=== PATIENT | female | born 2000 | race Caucasian/White ===

== ENCOUNTER 2021-06-16 15:01 | Emergency (ER) | payer OTHER ==
[~2021-06-16] VITALS: Ht 160 cm; Wt 70.3 kg
[2021-06-16 15:27] VITALS: BP 142/91
[2021-06-16 16:49] LABS: BASOPHILS # (AUTO) 0.1 10^3/uL (0.0-0.1); BASOPHILS % (AUTO) 1 % (0-10); EOSINOPHILS # (AUTO) 0.1 10^3/uL (0.0-0.3); EOSINOPHILS % (AUTO) 0 % (0-10); HEMATOCRIT 40 % (35-52); HEMOGLOBIN 13.2 g/dL (11.5-16.0); LYMPHOCYTES # (AUTO) 2.9 10^3/uL (1.0-4.0); LYMPHOCYTES % (AUTO) 17 % (12-44); MEAN CORPUSCULAR HEMOGLOBIN 30 pg (25-34); MEAN CORPUSCULAR HGB CONC 33 g/dL (32-36); MEAN CORPUSCULAR VOLUME 90 fL (80-99); MEAN PLATELET VOLUME 10.3 fL (9.0-12.2); MONOCYTES # (AUTO) 0.6 10^3/uL (0.0-1.0); MONOCYTES % (AUTO) 3 % (0-12); NEUTROPHILS # (AUTO) 13.4 10^3/uL (1.8-7.8); NEUTROPHILS % (AUTO) 78 % (42-75); PLATELET COUNT 449 10^3/uL (130-400); WHITE BLOOD COUNT 17.1 10^3/uL (4.3-11.0)
[2021-06-16 16:49] LABS: BILIRUBIN,URINE NEGATIVE (NEGATIVE); CLARITY,URINE CLEAR; COLOR,URINE YELLOW; GLUCOSE, URINE (UA) NEGATIVE (NEGATIVE); KETONES,URINE NEGATIVE (NEGATIVE); LEUKOCYTE ESTERASE ,URINE NEGATIVE (NEGATIVE); NITRITE,URINE NEGATIVE (NEGATIVE); PH,URINE 7.5 (5-9); PROTEIN,URINE NEGATIVE (NEGATIVE)
--- NOTE | 2021-06-16 16:58 | ED General ---
General Chief Complaint: Dizziness/Syncope Stated Complaint: GOT NEXPLANON IMPLANT/DIZZY/NAUSEA Nursing Triage Note: PT AMB TO TRIAGE WITH COMPLAINT OF CHEST TIGHTNESS, DIZZINESS, SOA, AND NAUSEA. STATES HAS NEXPLANON PLACED ON SATURDAY BY TALITA TALAMANTES. IS CONCERNED IMPLANT IS CAUSING SYMPTOMS. Source of Information: Patient Exam Limitations: No Limitations History of Present Illness Date Seen by Provider: Jun 16, 2021 Time Seen by Provider: 16:56 Initial Comments To ER by private vehicle with reports of burning in her left arm transiently which is gone now. She also had transient dizziness, nausea, lightheadedness. [place], she had not eaten breakfast. She went home and ate something, found her heart rate to be low in the 40s, decided to come into the emergency room. She had a Nexplanon implanted in the left upper arm 2 days ago. At this time she feels back to normal. 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 Timing/Duration: 4-6 Hours Severity: Moderate Associated Systoms: Nausea/Vomiting Allergies and Home Medications Allergies Coded Allergies: Penicillins (Verified Allergy, Unknown, 06/16/21) amoxicillin (Verified Allergy, Unknown, 06/16/21) Patient Home Medication List Home Medication List Reviewed: Yes Review of Systems Review of Systems Constitutional: see HPI, chills, dizziness EENTM: see HPI Respiratory: no symptoms reported Cardiovascular: no symptoms reported Gastrointestinal: nausea Genitourinary: no symptoms reported Musculoskeletal: no symptoms reported Skin: no symptoms reported Psychiatric/Neurological: No Symptoms Reported Hematologic/Lymphatic: No Symptoms Reported Past [id number] Hx Patient Social History Tobacco Use?: No Use of E-Cig and/or Vaping dev: No Substance use?: No Alcohol Use?: No Pt feels they are or have been: No Physical Exam Vital Signs Vital Signs - First Documented 06/16/21 15:27 Pulse 110 Resp 22 B/P (MAP) 142/91 (108) Pulse Ox 100 O2 Delivery Room Air Capillary Refill : Less Than 3 Seconds Height, Weight, BMI Height: '" Weight: lbs. oz. kg; 27.00 BMI Method: General Appearance: No Apparent Distress, WD/WN Eyes: Bilateral Eye Normal Inspection, Bilateral Eye PERRL, Bilateral Eye EOMI HEENT: PERRL/EOMI, TMs Normal Neck: Full Range of Motion, Normal Inspection Respiratory: Lungs Clear, Normal Breath Sounds, No Accessory Muscle Use, No Respiratory Distress Cardiovascular: Regular Rate, Rhythm, Normal Peripheral Pulses Gastrointestinal: Normal Bowel Sounds, Non Tender, Soft Extremity: Normal Capillary Refill, Normal Inspection, Other (Upper extremity Nexplanon insertion site is clean and dry without ecchymosis or discharge from the puncture site or erythema.) Neurologic/Psychiatric: Alert, Oriented x3 Skin: Normal Color, Warm/Dry Progress/Results/Core Measures Suspected Sepsis SIRS Temperature: Pulse: 110 Respiratory Rate: 22 Laboratory Tests 06/16/21 16:30: White Blood Count 17.1H Blood Pressure 142 /91 Mean: 108 Laboratory Tests 06/16/21 16:30: Creatinine 0.87, Platelet Count 449H, Total Bilirubin 0.8 Results/Orders Lab Results Laboratory Tests Test 06/16/21 16:25 06/16/21 16:30 06/16/21 16:33 Range/Units Urine Color YELLOW Urine Clarity CLEAR Urine pH 7.5 5-9 Urine Specific [place] 1.020 1.016-1.022 Urine Protein NEGATIVE NEGATIVE Urine Glucose (UA) NEGATIVE NEGATIVE Urine Ketones NEGATIVE NEGATIVE Urine Nitrite NEGATIVE NEGATIVE Urine Bilirubin NEGATIVE NEGATIVE Urine Urobilinogen 0.2 < = 1.0 MG/DL Urine Leukocyte Esterase NEGATIVE NEGATIVE Urine RBC (Auto) NEGATIVE NEGATIVE Urine RBC NONE /HPF Urine WBC NONE /HPF Urine Crystals NONE /LPF Urine Bacteria NEGATIVE /HPF Urine Casts NONE /LPF Urine Mucus NEGATIVE /LPF Urine Culture Indicated NO White Blood Count 17.1 H 4.3-11.0 10^3/uL Red Blood Count 4.40 3.80-5.11 10^6/uL Hemoglobin 13.2 11.5-16.0 g/dL Hematocrit 40 35-52 % Mean Corpuscular Volume 90 80-99 fL Mean Corpuscular Hemoglobin 30 25-34 pg Mean Corpuscular Hemoglobin Concent 33 32-36 g/dL Red Cell Distribution Width 12.5 10.0-14.5 % Platelet Count 449 H 130-400 10^3/uL Mean Platelet Volume 10.3 9.0-12.2 fL Immature Granulocyte % (Auto) 0 % Neutrophils (%) (Auto) 78 H 42-75 % Lymphocytes (%) (Auto) 17 12-44 % Monocytes (%) (Auto) 3 0-12 % Eosinophils (%) (Auto) 0 0-10 % Basophils (%) (Auto) 1 0-10 % Neutrophils # (Auto) 13.4 H 1.8-7.8 10^3/uL Lymphocytes # (Auto) 2.9 1.0-4.0 10^3/uL Monocytes # (Auto) 0.6 0.0-1.0 10^3/uL Eosinophils # (Auto) 0.1 0.0-0.3 10^3/uL Basophils # (Auto) 0.1 0.0-0.1 10^3/uL Immature Granulocyte # (Auto) 0.1 0.0-0.1 10^3/uL Neutrophils % (Manual) 71 % Lymphocytes % (Manual) 25 % Monocytes % (Manual) 2 % Eosinophils % (Manual) 1 % Basophils % (Manual) 1 % Blood Morphology Comment NORMAL D-Dimer 0.31 0.00-0.49 UG/ML Sodium Level 139 135-145 MMOL/L Potassium Level 3.4 L 3.6-5.0 MMOL/L Chloride Level 108 H 98-107 MMOL/L Carbon Dioxide Level 20 L 21-32 MMOL/L Anion Gap 11 5-14 MMOL/L Blood Urea Nitrogen 9 7-18 MG/DL Creatinine 0.87 0.60-1.30 MG/DL Estimat Glomerular Filtration Rate 96 BUN/Creatinine Ratio 10 Glucose Level 81 70-105 MG/DL Calcium Level 9.5 8.5-10.1 MG/DL Corrected Calcium 8.5-10.1 MG/DL Total Bilirubin 0.8 0.1-1.0 MG/DL Aspartate Amino Transf (AST/SGOT) 18 5-34 U/L Alanine Aminotransferase (ALT/SGPT) 21 0-55 U/L Alkaline Phosphatase 61 40-136 U/L C-Reactive Protein High Sensitivity 0.08 0.00-0.50 MG/DL Total Protein 7.7 6.4-8.2 GM/DL Albumin 4.7 H 3.2-4.5 GM/DL Procalcitonin 0.01 <0.10 NG/ML Glucometer 76 70-110 MG/DL My Orders Orders - JANIA SANABRIA APRN Accucheck Stat ONCE (06/16/21 16:39) Urine Bedside (06/16/21 16:41) Cbc With Automated Diff (06/16/21 16:41) Comprehensive Metabolic Panel (06/16/21 16:41) Ua Culture If Indicated (06/16/21 16:41) Ed Iv/Invasive Line Start (06/16/21 16:41) Fibrin Degradation Products (06/16/21 16:47) Manual Differential (06/16/21 16:30) Procalcitonin (Pct) (06/16/21 17:09) Hs C Reactive Protein (06/16/21 17:09) Vital Signs/I&O 06/16/21 15:27 Pulse 110 Resp 22 B/P (MAP) 142/91 (108) Pulse Ox 100 O2 Delivery Room Air Capillary Refill : Less Than 3 Seconds Blood Pressure Mean: 108 Point of Care Testing Finger Stick Blood Glucose: 76 Departure Communication (Admissions) 181-patient reports that she is still feeling back to normal. She is worried about what her symptoms are presented. Discussed with her the slight leukocytosis and the need for follow-up though the cause of this is not clear and is also not alarming based on her other labs. She agrees to return for any worsening or recurrent symptoms. She will follow-up with [facility] next week. Impression Primary Impression: Nausea Additional Impression: Dizziness Disposition: HOME, SELF-CARE Condition: Stable Departure-Patient Inst. Decision time for Depature: 18:04 Referrals: NO,LOCAL PHYSICIAN (PCP) Primary Care Physician TALITA TALAMANTES (Family) Primary Care Physician Patient Instructions: Dizziness, Adult ED Add. Discharge Instructions: 1. The cause of your symptoms earlier today is not entirely clear. This could have been related to not eating breakfast, it could have been related to the side effect of the hormones from the Nexplanon. Follow-up with your primary care provider within 1 to 2 weeks. Your white blood cells were slightly elevated and warrants a recheck but is a nonspecific finding and by itself is not terribly alarming.. This can represent infectious process or stress response to any sort of illness. Return to ER for any fevers, or any worsening symptoms. Copy Copies To 1: PAULA LEAL MD, PETER J APRN Jun 16, 2021 16:57
[2021-06-16 17:07] LABS: ALBUMIN 4.7 GM/DL (3.2-4.5); CHLORIDE 108 MMOL/L (98-107); POTASSIUM 3.4 MMOL/L (3.6-5.0); SODIUM 139 MMOL/L (135-145)
[2021-06-16 17:07] LABS: BACTERIA,URINE NEGATIVE /HPF
[2021-06-16 17:08] LABS: CALCIUM 9.5 MG/DL (8.5-10.1)
[2021-06-16 17:09] LABS: GLUCOSE 81 MG/DL (70-105); TOTAL PROTEIN 7.7 GM/DL (6.4-8.2)
[2021-06-16 17:10] LABS: CARBON DIOXIDE 20 MMOL/L (21-32)
[2021-06-16 17:11] LABS: BILIRUBIN,TOTAL 0.8 MG/DL (0.1-1.0)
[2021-06-16 17:13] LABS: ALKALINE PHOSPHATASE 61 U/L (40-136); CREATININE SERUM 0.87 MG/DL (0.60-1.30); GFR ESTIMATED 96
[2021-06-16 17:14] LABS: BUN/CREATININE RATIO 10
[2021-06-16 17:16] LABS: ALANINE AMINOTRANSFERASE 21 U/L (0-55)
[2021-06-16 17:25] LABS: BASOPHILS % (MANUAL) 1 %; EOSINOPHILS % (MANUAL) 1 %; LYMPHOCYTES % (MANUAL) 25 %; MONOCYTES % (MANUAL) 2 %; NEUTROPHILS % (MANUAL) 71 %; RBC MORPH NORMAL
== END 2021-06-16 18:24 | disposition home or self-care (01) ==
LOC: EDUNIT# 15:01 → ER 15:03
DX: R42 Dizziness and giddiness (principal); R11.2 Nausea with vomiting, unspecified; D72.829 Elevated white blood cell count, unspecified
CPT/HCPCS: 36415; 80053; 81000; 82947; 84145; 84703; 85007; 85027; 85379; 86141